=== PATIENT | female | born 1930 | race Caucasian/White ===

== ENCOUNTER 2016-11-29 09:30 | Inpatient (IN) | payer OTHER ==
[~2016-11-29] VITALS: Ht 160 cm; Wt 65.5 kg
[~2016-11-29 09:30] MED LIST: ALER-CAP25 M1 PO; ANTIVERT25 MG PO; ASPIR 8181 M1 PO; ASPIR-LOW81 MG PO; ASPIRIN E.C.81 M1 PO; ASPIRIN81 M1 PO; Ambien PO; Antivert PO; BENADRYL25 MG PO; BENADRYL50 MG PO; CALCITRIOL0.25 MC1 PO; CEFTIN250 MG PO; CELEXA20 MG PO; CHOLESTYRAMINE P4 GM PO; CIPROFLOXACIN250 MG PO; CITALOPRAM HBR20 MG PO; COREG12.5 M1 PO; COREG25 MG PO; Celexa PO; DETROL LA4 MG PO; DITROPAN XL5 MG PO; DITROPAN5 MG PO; DOXAZOSIN MESYLA2 MG PO; ERGOCALCIF50000 UNIT PO; FEOSOL325 MG PO; FLORASTOR250 MG PO; Heparin Sodium SC; IRON325 MG PO; LABETALOL HCL200 MG PO; LACTULOSE10 GM/151 PO; METRONIDAZOLE500 MG PO; Morphine Sulfate PO; NABI650T PO; NORVASC10 MG PO; OCUVITE TABLET1 EACH PO; OXYBUTYNIN CHLOR5 MG PO; PANTOPRAZOLE SO40 MG PO; PARICALCITOL1 MCG PO; PRESERVISION T1 EACH PO; PRILOSEC20 MG PO; PROTONIX40 MG PO; QUESTRAN PACKET4 GM PO; QUESTRAN4 GM/PACKE PO; SM GLUCOSAMINE1 EACH PO; STOOL SOFTENER100 MG PO; STOOL SOFTENER50 MG PO; TRAMADOL HCL50 MG PO; Tessalon Perle PO; Tylenol Regular Stre PO; VEGETARIAN GLU750 MG PO; VITAMIN D250000 UNIT PO; Vancocin Oral Soluti PO; ZETIA10 MG PO; [UNRECOGNIZED DRUG - OTHER]; [UNRECOGNIZED DRUG - OTHER]; [UNRECOGNIZED DRUG - OTHER] OP
[2016-11-29 10:10] LABS: HEMATOCRIT 35.5 % (36.0-46.0); MCH 28.1 PG (29.0-34.0); MCHC 31.8 G/DL (30.0-36.0); MCV 88.3 FL (83-99); MEAN PLAT.VOLUME 11.5 uM^3 (9.5-12.4); PLATELET COUNT 154 K/uL (156-360); RBC DIS.WIDTH-CV 18.5 % (11.8-14.6); RBC DIS.WIDTH-SD 59.3 % (39-53); RED BLOOD COUNT 4.02 M/uL (3.80-5.20)
[2016-11-29 10:17] LABS: EOSINOPHIL (%) 3.8 % (0-5); EOSINOPHIL COUNT 0.2 K/uL (0-0.3); IMMATURE GRANULOCYTE (%) 0.4 % (0.0-0.7); IMMATURE GRANULOCYTE COUNT 0.2 K/uL; LYMPHOCYTE COUNT 0.7 K/uL (1.0-2.8); MONOCYTE (%) 5.6 % (3-12); MONOCYTE COUNT 0.3 K/uL (0-0.8); NEUTROPHIL (%) 74.8 % (45-76); NEUTROPHIL COUNT 3.7 K/uL (1.8-6.4)
[2016-11-29 10:22] LABS: CHLORIDE 112 mEq/L (99-109); POTASSIUM 4.4 mEq/L (3.7-5.4); SODIUM 143 mEq/L (136-147)
[2016-11-29 10:24] LABS: GLUCOSE 85 mg/dL (70-99)
[2016-11-29 10:25] LABS: ANION GAP 13 MEQ/L (2-14)
[2016-11-29 10:26] LABS: TOTAL BILIRUBIN 0.5 mg/dL (0.0-1.0)
[2016-11-29 10:28] LABS: ALKALINE PHOSPHATASE 100 IU/L (3-129); GFR ESTIMATE (CALCULATED) 8 mL/min/
[2016-11-29 10:30] LABS: UREA NITROGEN (BUN) 64 mg/dL (9-23)
[2016-11-29 10:31] LABS: SALICYLATE < 5.0 MG/DL (15-30)
[2016-11-29 12:55] LABS: ADD MIUA? YES; BILIRUBIN NEGATIVE; BLOOD SMALL; GLUCOSE (STRIP) NEGATIVE; KETONES NEGATIVE; LEUKOCYTES MODERATE; NITRITE POSITIVE; PROTEIN (STRIP) 30; SPECIFIC GRAVITY 1.009 (1.000-1.030); UROBILINOGEN 0.2 MG/DL (0.2-1.0)
[2016-11-29 13:13] LABS: COLOR LT YELLOW ((YELLOW))
[2016-11-29 13:30] LABS: BACTERIA RARE /HPF; EPITHELIAL CELLS NONE SEEN /HPF; MUCUS NONE SEEN /LPF; RED BLOOD CELLS 0-5 /HPF (0-5); UCUL ADDED? NO; WHITE BLOOD CELLS 30-40 /HPF (0-5); WHITE BLOOD CELLS CLUMP MANY /HPF (0-5)
[2016-11-29] MEDS ORDERED: TRAMADOL HCL50 MG PO (15:19)
[2016-11-29 21:32] VITALS: BP 173/80
[2016-11-29 23:09] LABS: INTER. NORMALIZED RATIO 1.1; PROTHROMBIN TIME 10.7 (9.2-11.2)
[2016-11-29 23:10] LABS: MCH 27.6 PG (29.0-34.0); MCHC 30.9 G/DL (30.0-36.0); MCV 89.2 FL (83-99); MEAN PLAT.VOLUME 11.9 uM^3 (9.5-12.4); PLATELET COUNT 163 K/uL (156-360); RBC DIS.WIDTH-SD 60.9 % (39-53); RED BLOOD COUNT 3.81 M/uL (3.80-5.20); WHITE BLOOD COUNT 7.3 K/uL (4.1-10.2)
[2016-11-29 23:11] LABS: CHLORIDE 116 mEq/L (99-109); POTASSIUM 4.9 mEq/L (3.7-5.4); SODIUM 144 mEq/L (136-147)
[2016-11-29 23:13] LABS: GLUCOSE 94 mg/dL (70-99)
[2016-11-29 23:15] LABS: ANION GAP 14 MEQ/L (2-14); TOTAL BILIRUBIN 0.5 mg/dL (0.0-1.0)
[2016-11-29 23:17] LABS: ALKALINE PHOSPHATASE 95 IU/L (3-129); GFR ESTIMATE (CALCULATED) 9 mL/min/
[2016-11-29 23:18] LABS: UREA NITROGEN (BUN) 59 mg/dL (9-23)
[2016-11-29 23:47] VITALS: BP 168/80
[2016-11-30 03:14] VITALS: BP 173/70
[2016-11-30 07:05] VITALS: BP 167/79
[2016-11-30 07:42] LABS: HEMATOCRIT 33.2 % (36.0-46.0); MCH 27.9 PG (29.0-34.0); MCHC 30.7 G/DL (30.0-36.0); MEAN PLAT.VOLUME 12.1 uM^3 (9.5-12.4); PLATELET COUNT 145 K/uL (156-360); RBC DIS.WIDTH-CV 19.2 % (11.8-14.6); RBC DIS.WIDTH-SD 64.5 % (39-53); RED BLOOD COUNT 3.65 M/uL (3.80-5.20)
[2016-11-30 08:05] LABS: ANION GAP 17 MEQ/L (2-14); CHLORIDE 113 MEQ/L (99-109); GFR ESTIMATE (CALCULATED) 10 mL/min/; GLUCOSE 75 mg/dL (70-99); POTASSIUM 5.2 MEQ/L (3.7-5.4); SAMPLE HEMOLYSIS CHECK 0; SAMPLE ICTERIC CHECK 0; SAMPLE LIPEMIA CHECK 0; SODIUM 145 MEQ/L (136-147); UREA NITROGEN (BUN) 58 mg/dL (9-23)
[2016-11-30 11:35] VITALS: BP 155/71
[2016-11-30 15:15] VITALS: BP 164/79
[2016-11-30 19:10] VITALS: BP 147/86
[2016-11-30 23:21] VITALS: BP 135/63
[2016-12-01] VITALS (7 sets, daily range): BP systolic 125–177; BP diastolic 55–79
[2016-12-01 07:35] LABS: HEMATOCRIT 30.2 % (36.0-46.0); MCH 27.4 PG (29.0-34.0); MCHC 31.1 G/DL (30.0-36.0); PLATELET COUNT 127 K/uL (156-360); RBC DIS.WIDTH-CV 19.1 % (11.8-14.6); RBC DIS.WIDTH-SD 61.6 % (39-53); RED BLOOD COUNT 3.43 M/uL (3.80-5.20); WHITE BLOOD COUNT 5.3 K/uL (4.1-10.2)
[2016-12-01 07:55] LABS: EOSINOPHIL COUNT 0.2 K/uL (0-0.3); LYMPHOCYTE COUNT 0.7 K/uL (1.0-2.8); MONOCYTE (%) 6.9 % (3-12); MONOCYTE COUNT 0.4 K/uL (0-0.8); NEUTROPHIL (%) 76.2 % (45-76); NEUTROPHIL COUNT 4.1 K/uL (1.8-6.4)
[2016-12-01 08:22] LABS: ANION GAP 11 MEQ/L (2-14); CHLORIDE 106 MEQ/L (99-109); GFR ESTIMATE (CALCULATED) 10 mL/min/; GLUCOSE 101 mg/dL (70-99); SAMPLE HEMOLYSIS CHECK 0; SAMPLE ICTERIC CHECK 0; SAMPLE LIPEMIA CHECK 0; SODIUM 140 MEQ/L (136-147); UREA NITROGEN (BUN) 53 mg/dL (9-23)
[2016-12-01 10:45] LABS: INTER. NORMALIZED RATIO 1.1; PROTHROMBIN TIME 11.1 (9.2-11.2); PTT 25.4 (25-32)
[2016-12-01 13:26] LABS: HDL CHOLESTEROL 37 MG/DL (Desirable>=50); LDL CHOLESTEROL 62 mg/dL (Desirable<100); NON-HDL CHOLESTEROL 79 mg/dL (Desirable<160); TOTAL CHOLESTEROL 116 mg/dL (Desirable<200); TRIGLYCERIDES 85 MG/DL (Normal: <150)
[2016-12-01 14:10] LABS: Estimated Average Glucose 100 mg/dL (70-123); HEMOGLOBIN A1c (GLYCOHEMOGLOB) 5.1 % HGB (Below 5.7)
[2016-12-02] VITALS (8 sets, daily range): BP systolic 124–192; BP diastolic 68–90
[2016-12-02 07:09] LABS: ANION GAP 9 MEQ/L (2-14); CHLORIDE 109 MEQ/L (99-109); GFR ESTIMATE (CALCULATED) 11 mL/min/; GLUCOSE 92 mg/dL (70-99); POTASSIUM 4.4 MEQ/L (3.7-5.4); SAMPLE HEMOLYSIS CHECK 0; SAMPLE ICTERIC CHECK 0; SAMPLE LIPEMIA CHECK 0; SODIUM 141 MEQ/L (136-147); UREA NITROGEN (BUN) 45 mg/dL (9-23)
[2016-12-03 04:14] VITALS: BP 155/68
[2016-12-03 07:47] LABS: ANION GAP 11 MEQ/L (2-14); CHLORIDE 111 MEQ/L (99-109); GFR ESTIMATE (CALCULATED) 10 mL/min/; GLUCOSE 97 mg/dL (70-99); POTASSIUM 5.2 MEQ/L (3.7-5.4); SAMPLE HEMOLYSIS CHECK 1; SAMPLE ICTERIC CHECK 0; SAMPLE LIPEMIA CHECK 0; SODIUM 142 MEQ/L (136-147); UREA NITROGEN (BUN) 48 mg/dL (9-23)
[2016-12-03 08:08] VITALS: BP 194/84
[2016-12-03 08:48] LABS: EOSINOPHIL (%) 4.5 % (0-5); EOSINOPHIL COUNT 0.2 K/uL (0-0.3); IMMATURE GRANULOCYTE (%) 0.7 % (0.0-0.7); LYMPHOCYTE COUNT 0.6 K/uL (1.0-2.8); MONOCYTE (%) 7.1 % (3-12); MONOCYTE COUNT 0.4 K/uL (0-0.8); NEUTROPHIL (%) 75.3 % (45-76)
[2016-12-03 08:50] LABS: HEMATOCRIT 31.4 % (36.0-46.0); MCH 27.9 PG (29.0-34.0); MCHC 31.2 G/DL (30.0-36.0); MCV 89.5 FL (83-99); RBC DIS.WIDTH-CV 18.9 % (11.8-14.6); RBC DIS.WIDTH-SD 61.6 % (39-53); RED BLOOD COUNT 3.51 M/uL (3.80-5.20); WHITE BLOOD COUNT 5.4 K/uL (4.1-10.2)
[2016-12-03 09:18] LABS: HEMATOLOGY COMMENT 1 SMEAR COMPATIBLE; MEAN PLAT.VOLUME 12.2 uM^3 (9.5-12.4); PLATELET COUNT 122 K/uL (156-360)
[2016-12-03 11:12] VITALS: BP 180/78
[2016-12-03 15:41] VITALS: BP 170/85
[2016-12-03 19:14] VITALS: BP 186/81
[2016-12-04] VITALS (10 sets, daily range): BP systolic 136–150; BP diastolic 60–72
[2016-12-04 07:22] LABS: ANION GAP 11 MEQ/L (2-14); CHLORIDE 109 MEQ/L (99-109); GFR ESTIMATE (CALCULATED) 10 mL/min/; GLUCOSE 95 mg/dL (70-99); POTASSIUM 4.4 MEQ/L (3.7-5.4); SAMPLE HEMOLYSIS CHECK 0; SAMPLE ICTERIC CHECK 0; SAMPLE LIPEMIA CHECK 0; SODIUM 140 MEQ/L (136-147); UREA NITROGEN (BUN) 48 mg/dL (9-23)
[2016-12-04 07:42] LABS: EOSINOPHIL (%) 4.9 % (0-5); EOSINOPHIL COUNT 0.3 K/uL (0-0.3); HEMATOCRIT 30.5 % (36.0-46.0); IMMATURE GRANULOCYTE (%) 0.4 % (0.0-0.7); LYMPHOCYTE COUNT 0.8 K/uL (1.0-2.8); MCH 27.5 PG (29.0-34.0); MCHC 31.1 G/DL (30.0-36.0); MCV 88.2 FL (83-99); MONOCYTE (%) 8.2 % (3-12); MONOCYTE COUNT 0.5 K/uL (0-0.8); NEUTROPHIL (%) 71.6 % (45-76); RBC DIS.WIDTH-CV 18.9 % (11.8-14.6); RBC DIS.WIDTH-SD 61.1 % (39-53); RED BLOOD COUNT 3.46 M/uL (3.80-5.20); WHITE BLOOD COUNT 5.5 K/uL (4.1-10.2)
[2016-12-04 08:04] LABS: HEMATOLOGY COMMENT 1 SMEAR COMPATIBLE; MEAN PLAT.VOLUME 12.6 uM^3 (9.5-12.4); PLATELET COUNT 116 K/uL (156-360)
[2016-12-04 13:29] LABS: HEMATOCRIT 28.3 % (36.0-46.0); MCH 27.4 PG (29.0-34.0); MCHC 30.7 G/DL (30.0-36.0); MCV 89.3 FL (83-99); RBC DIS.WIDTH-CV 18.7 % (11.8-14.6); RBC DIS.WIDTH-SD 58.7 % (39-53); RED BLOOD COUNT 3.17 M/uL (3.80-5.20); WHITE BLOOD COUNT 4.4 K/uL (4.1-10.2)
[2016-12-04 13:30] LABS: MEAN PLAT.VOLUME 12.1 uM^3 (9.5-12.4)
[2016-12-04 13:37] LABS: CHLORIDE 113 mEq/L (99-109); POTASSIUM 4.8 mEq/L (3.7-5.4); SODIUM 143 mEq/L (136-147)
[2016-12-04 13:39] LABS: GLUCOSE 125 mg/dL (70-99)
[2016-12-04 13:40] LABS: ANION GAP 10 MEQ/L (2-14)
[2016-12-04 13:43] LABS: GFR ESTIMATE (CALCULATED) 10 mL/min/
[2016-12-04 13:44] LABS: UREA NITROGEN (BUN) 46 mg/dL (9-23)
[2016-12-04 14:01] LABS: PLATELET COUNT 152 K/uL (156-360)
[2016-12-04 18:28] LABS: HEMATOCRIT 29.1 % (36.0-46.0); MCV 90.4 FL (83-99)
[2016-12-05] VITALS: BP 162/74
[2016-12-05 01:46] LABS: HEMATOCRIT 27.2 % (36.0-46.0); MCH 28.8 PG (29.0-34.0); MCHC 32.4 G/DL (30.0-36.0); MCV 88.9 FL (83-99); PLATELET COUNT 127 K/uL (156-360); RBC DIS.WIDTH-CV 17.8 % (11.8-14.6); RBC DIS.WIDTH-SD 56.3 % (39-53); RED BLOOD COUNT 3.06 M/uL (3.80-5.20); WHITE BLOOD COUNT 5.3 K/uL (4.1-10.2)
[2016-12-05 01:49] LABS: BASOPHIL COUNT 0.1 K/uL (0-0.1); EOSINOPHIL (%) 5.3 % (0-5); EOSINOPHIL COUNT 0.3 K/uL (0-0.3); IMMATURE GRANULOCYTE (%) 0.4 % (0.0-0.7); IMMATURE GRANULOCYTE COUNT 0.2 K/uL; MONOCYTE (%) 7.2 % (3-12); MONOCYTE COUNT 0.4 K/uL (0-0.8); NEUTROPHIL (%) 66.7 % (45-76); NEUTROPHIL COUNT 3.5 K/uL (1.8-6.4)
[2016-12-05 04:00] VITALS: BP 138/66
[2016-12-05 07:34] LABS: ANION GAP 11 MEQ/L (2-14); CHLORIDE 112 MEQ/L (99-109); GFR ESTIMATE (CALCULATED) 10 mL/min/; POTASSIUM 4.6 MEQ/L (3.7-5.4); SAMPLE HEMOLYSIS CHECK 0; SAMPLE ICTERIC CHECK 0; SAMPLE LIPEMIA CHECK 0; SODIUM 141 MEQ/L (136-147); UREA NITROGEN (BUN) 47 mg/dL (9-23)
[2016-12-05 07:36] LABS: GLUCOSE 89 mg/dL (70-99)
[2016-12-05 07:56] VITALS: BP 129/72
[2016-12-05 08:33] LABS: HEMATOCRIT 28.1 % (36.0-46.0); MCH 27.7 PG (29.0-34.0); MCHC 31.3 G/DL (30.0-36.0); MCV 88.4 FL (83-99); MEAN PLAT.VOLUME 11.9 uM^3 (9.5-12.4); PLATELET COUNT 137 K/uL (156-360); RBC DIS.WIDTH-CV 18.2 % (11.8-14.6); RBC DIS.WIDTH-SD 59.4 % (39-53); RED BLOOD COUNT 3.18 M/uL (3.80-5.20); WHITE BLOOD COUNT 4.8 K/uL (4.1-10.2)
[2016-12-05 08:57] LABS: EOSINOPHIL (%) 5.5 % (0-5); EOSINOPHIL COUNT 0.3 K/uL (0-0.3); IMMATURE GRANULOCYTE (%) 0.4 % (0.0-0.7); LYMPHOCYTE COUNT 0.6 K/uL (1.0-2.8); MONOCYTE (%) 6.9 % (3-12); MONOCYTE COUNT 0.3 K/uL (0-0.8); NEUTROPHIL (%) 74.2 % (45-76); NEUTROPHIL COUNT 3.5 K/uL (1.8-6.4)
[2016-12-05 13:29] LABS: HPCA INDEX 0.06
[2016-12-05 13:30] LABS: ANTI-HEPATITIS A VIRUS (IGM) Nonreactive
[2016-12-05 13:31] LABS: ANTI-HEPATITIS B CORE (IGM) Nonreactive; HBC IgM INDEX 0.06
[2016-12-05 14:06] VITALS: BP 136/62
[2016-12-05 15:41] LABS: HEMATOCRIT 26.5 % (36.0-46.0)
[2016-12-05 16:53] VITALS: BP 155/70
[2016-12-05 19:08] LABS: ANION GAP 8 MEQ/L (2-14); CHLORIDE 112 MEQ/L (99-109); POTASSIUM 4.1 MEQ/L (3.7-5.4); SAMPLE HEMOLYSIS CHECK 0; SAMPLE ICTERIC CHECK 0; SAMPLE LIPEMIA CHECK 0; SODIUM 141 MEQ/L (136-147)
[2016-12-05 19:17] LABS: GFR ESTIMATE (CALCULATED) 10 mL/min/; UREA NITROGEN (BUN) 48 mg/dL (9-23)
[2016-12-05 19:22] LABS: GLUCOSE 115 mg/dL (70-99)
[2016-12-05 20:00] VITALS: BP 166/74
[2016-12-05 22:58] LABS: HEMATOCRIT 26.4 % (36.0-46.0); MCV 88.3 FL (83-99)
[2016-12-06] VITALS: BP 137/85
[2016-12-06 04:00] VITALS: BP 148/64
[2016-12-06 06:21] LABS: HEMATOCRIT 25.4 % (36.0-46.0); MCH 27.5 PG (29.0-34.0); MCHC 31.1 G/DL (30.0-36.0); MCV 88.5 FL (83-99); MEAN PLAT.VOLUME 11.3 uM^3 (9.5-12.4); PLATELET COUNT 118 K/uL (156-360); RBC DIS.WIDTH-CV 18.1 % (11.8-14.6); RBC DIS.WIDTH-SD 58.8 % (39-53); RED BLOOD COUNT 2.87 M/uL (3.80-5.20); WHITE BLOOD COUNT 4.3 K/uL (4.1-10.2)
[2016-12-06 06:32] LABS: EOSINOPHIL (%) 5.6 % (0-5); EOSINOPHIL COUNT 0.2 K/uL (0-0.3); IMMATURE GRANULOCYTE (%) 0.5 % (0.0-0.7); LYMPHOCYTE COUNT 0.7 K/uL (1.0-2.8); MONOCYTE (%) 7.4 % (3-12); MONOCYTE COUNT 0.3 K/uL (0-0.8); NEUTROPHIL (%) 70.5 % (45-76)
[2016-12-06 06:48] LABS: ANION GAP 8 MEQ/L (2-14); CHLORIDE 112 MEQ/L (99-109); GFR ESTIMATE (CALCULATED) 10 mL/min/; GLUCOSE 88 mg/dL (70-99); POTASSIUM 4.1 MEQ/L (3.7-5.4); SAMPLE HEMOLYSIS CHECK 0; SAMPLE ICTERIC CHECK 0; SAMPLE LIPEMIA CHECK 0; SODIUM 141 MEQ/L (136-147); UREA NITROGEN (BUN) 47 mg/dL (9-23)
[2016-12-06 07:56] VITALS: BP 152/67
[2016-12-06 20:00] VITALS: BP 142/65
[2016-12-07] VITALS: BP 146/69
[2016-12-07 04:00] VITALS: BP 161/67
[2016-12-07 07:33] LABS: HEMATOCRIT 25.2 % (36.0-46.0); MCH 28.7 PG (29.0-34.0); MCHC 32.1 G/DL (30.0-36.0); MCV 89.4 FL (83-99); MEAN PLAT.VOLUME 12.6 uM^3 (9.5-12.4); PLATELET COUNT 117 K/uL (156-360); RBC DIS.WIDTH-CV 17.9 % (11.8-14.6); RBC DIS.WIDTH-SD 58.9 % (39-53); RED BLOOD COUNT 2.82 M/uL (3.80-5.20); WHITE BLOOD COUNT 6.7 K/uL (4.1-10.2)
[2016-12-07 07:48] LABS: ANION GAP 7 MEQ/L (2-14); CHLORIDE 107 MEQ/L (99-109); GFR ESTIMATE (CALCULATED) 15 mL/min/; GLUCOSE 94 mg/dL (70-99); POTASSIUM 4.2 MEQ/L (3.7-5.4); SAMPLE HEMOLYSIS CHECK 0; SAMPLE ICTERIC CHECK 0; SAMPLE LIPEMIA CHECK 0; SODIUM 139 MEQ/L (136-147); UREA NITROGEN (BUN) 25 mg/dL (9-23)
[2016-12-07 07:50] VITALS: BP 150/69
[2016-12-07 12:34] VITALS: BP 136/78
[2016-12-07 15:10] VITALS: BP 102/60
[2016-12-07 19:32] VITALS: BP 113/54
[2016-12-08 00:54] VITALS: BP 121/62
[2016-12-08 04:27] VITALS: BP 129/64
[2016-12-08 06:26] LABS: MCH 27.4 PG (29.0-34.0); MCHC 30.8 G/DL (30.0-36.0); MEAN PLAT.VOLUME 11.9 uM^3 (9.5-12.4); PLATELET COUNT 117 K/uL (156-360); RBC DIS.WIDTH-CV 17.9 % (11.8-14.6); RBC DIS.WIDTH-SD 58.6 % (39-53); RED BLOOD COUNT 2.81 M/uL (3.80-5.20); WHITE BLOOD COUNT 6.9 K/uL (4.1-10.2)
[2016-12-08 06:51] LABS: ANION GAP 9 MEQ/L (2-14); CHLORIDE 102 MEQ/L (99-109); GFR ESTIMATE (CALCULATED) 17 mL/min/; GLUCOSE 93 mg/dL (70-99); POTASSIUM 3.7 MEQ/L (3.7-5.4); SAMPLE HEMOLYSIS CHECK 0; SAMPLE ICTERIC CHECK 0; SAMPLE LIPEMIA CHECK 0; SODIUM 138 MEQ/L (136-147); UREA NITROGEN (BUN) 19 mg/dL (9-23)
[2016-12-08 08:00] VITALS: BP 148/63
[2016-12-08] MEDS ORDERED: NIFEDIPINE ER30 MG PO (09:59)
[2016-12-08] MEDS ORDERED: ATORVASTATIN CA40 MG PO (09:59)
[2016-12-08] MEDS ORDERED: TRAMADOL HCL50 MG PO (09:59)
[2016-12-08] MEDS ORDERED: ARANESP100 MCG/0. IV (09:59)
[2016-12-08 12:00] VITALS: BP 142/62
[2016-12-08 16:00] VITALS: BP 125/60
[2016-12-08 20:06] VITALS: BP 130/62
[2016-12-09 00:36] VITALS: BP 142/64
[2016-12-09 07:18] VITALS: BP 114/60
[2016-12-09 07:55] LABS: EOSINOPHIL (%) 4.7 % (0-5); EOSINOPHIL COUNT 0.3 K/uL (0-0.3); IMMATURE GRANULOCYTE (%) 0.5 % (0.0-0.7); LYMPHOCYTE COUNT 0.9 K/uL (1.0-2.8); MONOCYTE COUNT 0.5 K/uL (0-0.8); NEUTROPHIL (%) 71.7 % (45-76); NEUTROPHIL COUNT 4.3 K/uL (1.8-6.4)
[2016-12-09 08:15] LABS: ANION GAP 10 MEQ/L (2-14); CHLORIDE 104 MEQ/L (99-109); GFR ESTIMATE (CALCULATED) 11 mL/min/; GLUCOSE 101 mg/dL (70-99); POTASSIUM 3.8 MEQ/L (3.7-5.4); SAMPLE HEMOLYSIS CHECK 0; SAMPLE ICTERIC CHECK 0; SAMPLE LIPEMIA CHECK 0; SODIUM 140 MEQ/L (136-147); UREA NITROGEN (BUN) 27 mg/dL (9-23)
[2016-12-09 09:47] LABS: HEMATOCRIT 26.6 % (36.0-46.0); MCH 27.3 PG (29.0-34.0); MCHC 30.5 G/DL (30.0-36.0); MCV 89.6 FL (83-99); MEAN PLAT.VOLUME 11.8 uM^3 (9.5-12.4); PLAT.SUFFICIENCY DECREASED; PLATELET COUNT 124 K/uL (156-360); RBC DIS.WIDTH-SD 59.4 % (39-53); RED BLOOD COUNT 2.97 M/uL (3.80-5.20); USER ID STC
[2016-12-09 12:04] VITALS: BP 123/60
[2016-12-09 15:42] VITALS: BP 128/61
== END 2016-12-09 18:17 | DRG 689 ==
LOC: EME 09:30 → 5SOUTH 15:09 → 2EAST 15:09 → EDOF 15:09 → 2EAST 21:17 → 5SOUTH 12-01 18:24
PROVIDERS: Emergency Medicine; Hospitalist; Internal Medicine; Internal Medicine Nephrology; Student in an Organized Health Care Education/Training Program
DX: N39.0 Urinary tract infection, site not specified (principal); N18.6 End stage renal disease; N17.9 Acute kidney failure, unspecified; J90 Pleural effusion, not elsewhere classified; E87.2 Acidosis; M48.56XA Collapsed vertebra, not elsewhere classified, lumbar region, initial encounter for fracture; I12.0 Hypertensive chronic kidney disease with stage 5 chronic kidney disease or end stage renal disease; K92.0 Hematemesis; Q61.3 Polycystic kidney, unspecified; I67.89 Other cerebrovascular disease; K92.1 Melena; D62 Acute posthemorrhagic anemia; Z66 Do not resuscitate; I16.0 Hypertensive urgency; K59.03 Drug induced constipation; D63.1 Anemia in chronic kidney disease; R62.7 Adult failure to thrive; I25.10 Atherosclerotic heart disease of native coronary artery without angina pectoris; E86.0 Dehydration; I67.2 Cerebral atherosclerosis; E78.5 Hyperlipidemia, unspecified; M62.81 Muscle weakness (generalized); K21.9 Gastro-esophageal reflux disease without esophagitis; R32 Unspecified urinary incontinence; K44.9 Diaphragmatic hernia without obstruction or gangrene; Z89.021 Acquired absence of right finger(s); Z87.440 Personal history of urinary (tract) infections; Z68.25 Body mass index [BMI] 25.0-25.9, adult; Z80.1 Family history of malignant neoplasm of trachea, bronchus and lung
CPT/HCPCS: 70450; 70544; 70551; 71010; 72170; 74176; 76770; 80048; 80048 91; 80053; 80061; 80069; 80074; 81003; 82948; 83036; 83605; 85014; 85018; 85025; 85025 91; 85027; 85610; 85730; 86850; 86900; 86901; 86920; 87040; 87077; 87086; 87186; 92523 GN; 93306; 93880; 97530 GP; 99281; 99285; C1750; C1894; C9113; G0480; J0360; J0696; J0881; J1644; J2250; J2405; J3010; J7030; J7050; J7070; P9016; S0020

== ENCOUNTER 2017-01-27 11:35 | Day surgery (SDC) | payer OTHER ==
[~2017-01-27] VITALS: Ht 160 cm; Wt 64.0 kg
[~2017-01-27 11:35] MED LIST changes: +ARANESP100 MCG/0. IV; +ATORVASTATIN CA40 MG PO; +DIALYVITE 3,001 EACH PO; +LABETALOL HCL100 MG PO; +NIFEDIPINE ER30 MG PO; +NORVASC5 MG PO
[2017-01-27 12:08] VITALS: BP 122/58
[2017-01-27 12:29] LABS: HEMATOCRIT 34.7 % (36.0-46.0); MCH 30.6 PG (29.0-34.0); MCHC 31.7 G/DL (30.0-36.0); MCV 96.7 FL (83-99); MEAN PLAT.VOLUME 11.5 uM^3 (9.5-12.4); PLATELET COUNT 138 K/uL (156-360); RBC DIS.WIDTH-CV 17.4 % (11.8-14.6); RBC DIS.WIDTH-SD 62.3 % (39-53); RED BLOOD COUNT 3.59 M/uL (3.80-5.20); WHITE BLOOD COUNT 5.7 K/uL (4.1-10.2)
[2017-01-27 12:34] LABS: ANION GAP 10 MEQ/L (2-14); CHLORIDE 102 MEQ/L (99-109); POTASSIUM 4.2 MEQ/L (3.7-5.4); SAMPLE HEMOLYSIS CHECK 0; SAMPLE ICTERIC CHECK 0; SAMPLE LIPEMIA CHECK 0; SODIUM 139 MEQ/L (136-147)
[2017-01-27 12:39] LABS: GFR ESTIMATE (CALCULATED) 11 mL/min/; GLUCOSE 79 mg/dL (70-99); UREA NITROGEN (BUN) 34 mg/dL (9-23)
[2017-01-27 13:24] LABS: METH RESISTANT S AUREUS PCR NEGATIVE (NEGATIVE)
[2017-01-27 13:25] LABS: PROBE CHECK PASS; SPECIMEN PROCESSING CONTROL PASS
[2017-01-27 17:10] VITALS: BP 137/88
[2017-01-27 17:53] VITALS: BP 133/60
== END 2017-01-27 17:53 | disposition home or self-care (01) ==
LOC: SDC 11:35
PROVIDERS: Surgery
DX: I12.0 Hypertensive chronic kidney disease with stage 5 chronic kidney disease or end stage renal disease (principal); N18.6 End stage renal disease; Z99.2 Dependence on renal dialysis; K66.0 Peritoneal adhesions (postprocedural) (postinfection); E78.5 Hyperlipidemia, unspecified; M19.90 Unspecified osteoarthritis, unspecified site; Z79.82 Long term (current) use of aspirin; Z82.49 Family history of ischemic heart disease and other diseases of the circulatory system
CPT/HCPCS: 80048; 85027; 87641; 93005; C1750; J0330; J0690; J2405; J2710; J3010

== ENCOUNTER → 2017-03-10 | Outpatient (CLI) | payer OTHER | END | disposition home or self-care (01) | LOC: AMB 08:46 | PROC: 05PYX3Z Removal of Infusion Device from Upper Vein, External Approach (ICD-10-PCS; principal; 2017-03-10) | DX: Z49.01 Encounter for fitting and adjustment of extracorporeal dialysis catheter (principal); N18.6 End stage renal disease; Z99.2 Dependence on renal dialysis ==